=== PATIENT | male | born 1945 | race Caucasian/White ===

== ENCOUNTER 2018-05-27 20:03 | Emergency (ER) | payer OTHER, MEDICAID ==
[~2018-05-27] VITALS: Ht 182.9 cm; Wt 102.0 kg
[2018-05-27] MEDS ORDERED: HYDROCODONE/ACETAMINOPHEN 10/325MG TABLET PO ONE (22:45)
[2018-05-28 00:45] VITALS: BP 150/71
== END 2018-05-28 00:49 | disposition home or self-care (01) ==
LOC: ER 21:00
DX: S80.02XA Contusion of left knee, initial encounter (principal); E11.9 Type 2 diabetes mellitus without complications; W01.0XXA Fall on same level from slipping, tripping and stumbling without subsequent striking against object, initial encounter; Y93.89 Activity, other specified; Y92.098 Other place in other non-institutional residence as the place of occurrence of the external cause; Y99.8 Other external cause status
CPT/HCPCS: 72170; 73562; 99284